=== PATIENT | male | born 1950 | race Two or more races ===

== ENCOUNTER 2018-03-03 11:14 | Inpatient (IN) | payer MEDICARE, OTHER ==
[~2018-03-03] VITALS: Ht 167.6 cm; Wt 74.2 kg
[~2018-03-03 11:14] MED LIST: Depakote 500mg tab ORAL SCH
[2018-03-03] MEDS ORDERED: DEPAKOTE ER500 MG ORAL (11:28)
[2018-03-03] MEDS ORDERED: LEVOCARNITINE330 MG ORAL (11:28)
[2018-03-03] MEDS ORDERED: KEPPRA500 M4 ORAL (11:28)
[2018-03-03] MEDS ORDERED: FLEET ENEMA133 ML RECTAL (11:28)
[2018-03-03] MEDS ORDERED: LACTULOSE20 GM/301 ORAL (11:28)
[2018-03-03] MEDS ORDERED: CALCITRIOL PO (11:28)
[2018-03-03] MEDS ORDERED: CAL-CITRATE W/200 MG ORAL (11:28)
[2018-03-03] MEDS ORDERED: VITAMIN D1000 UNI1 ORAL (11:28)
[2018-03-03] MEDS ORDERED: DULCOLAX10 MG RC (11:28)
[2018-03-03] MEDS ORDERED: FOLIC ACID1 MG ORAL (11:28)
[2018-03-03] MEDS ORDERED: PHENYTOIN SODI100 MG ORAL (11:29)
[2018-03-03] MEDS ORDERED: MILK OF MA2400 MG/10 ORAL (11:29)
[2018-03-03] MEDS ORDERED: SIMVASTATIN40 MG ORAL (11:29)
[2018-03-03] MEDS ORDERED: ZYPREXA5 MG ORAL (11:29)
[2018-03-03 11:34] VITALS: BP 134/69
[2018-03-03] MEDS ORDERED: Sodium Chloride 500ML 500 ML IV ONE (11:36)
[2018-03-03 12:45] LABS: EOSINOPHILS % (AUTO) 1.8 % (0.0-3.0); HEMATOCRIT 39.7 % (42.0-52.0); HEMOGLOBIN 14.2 G/DL (14.2-18.0); LYMPHOCYTES % (AUTO) 32.2 % (20.0-45.0); MEAN CORPUSCULAR VOLUME 95 FL (80-99); MONOCYTES % (AUTO) 9.2 % (1.0-10.0); NEUTROPHILS % (AUTO) 55.8 % (45.0-75.0); PLATELET COUNT 146 K/UL (150-450); RED BLOOD COUNT 4.17 M/UL (4.70-6.10); RED CELL DISTRIBUTION WIDTH 11.2 % (11.6-14.8); WHITE BLOOD COUNT 5.3 K/UL (4.8-10.8)
[2018-03-03 13:01] LABS: ANION GAP 8 mmol/L (5-15); BLOOD UREA NITROGEN 14 mg/dL (7-18); CALCIUM 8.9 MG/DL (8.5-10.1); CARBON DIOXIDE 27 MMOL/L (21-32); CHLORIDE 104 MMOL/L (98-107); CREATININE 0.6 MG/DL (0.55-1.30); POTASSIUM 4.6 MMOL/L (3.5-5.1); SODIUM 139 MMOL/L (136-145)
[2018-03-03 13:07] LABS: ALANINE AMINOTRANSFERASE 49 U/L (12-78); ALBUMIN 3.6 G/DL (3.4-5.0); ALKALINE PHOSPHATASE 122 U/L (46-116); ASPARTATE AMINO TRANSFERASE 24 U/L (15-37); BILIRUBIN,TOTAL 0.2 MG/DL (0.2-1.0)
[2018-03-03] MEDS ORDERED: Valproate Sodium INJ 500 MG in NS 55 ML IV ONE (13:30)
[2018-03-03 13:51] VITALS: BP 129/62
--- NOTE | 2018-03-03 13:51 | Emergency Room Report ---
History of Present Illness General Chief Complaint: Abnormal Labs Source: Patient, Medical Record Present Illness HPI 67-year-old male presents ED for evaluation of seizure. [facility]. Reportedly had a low Dilantin level. Patient has history of seizures. patient has schizophrenia. Upon arrival patient showing no signs of distress. States he feels okay. No other aggravating relieving factors. Denies any other associated symptoms Allergies: Coded Allergies: No Known Allergies (Unverified , 03/03/18) Patient History Past Medical History: seizures, psych hx, other - encephalopathy Past Surgical History: none Pertinent Family History: none Social History: Denies: smoking, alcohol use, drug use Immunizations: UTD Reviewed Nursing Documentation: PMH: Agreed; PSxH: Agreed Nursing Documentation-PMH Past Medical History: No History, Except For History Of Psychiatric Problem: Yes - Schizophrenia Hx Neurological Problems: Yes - difficulty in walking, muscle weakness, encephalopathy Hx Seizures: Yes Review of Systems All Other Systems: negative except mentioned in HPI Physical Exam Vital Signs Date Time Temp Pulse Resp B/P (MAP) Pulse Ox O2 Delivery O2 Flow Rate FiO2 03/03/18 11:14 98.1 64 16 132/68 98 Room Air 98.1 Sp02 EP Interpretation: reviewed, normal General Appearance: no apparent distress, alert, GCS 15, non-toxic Head: normocephalic, atraumatic Eyes: bilateral eye normal inspection, bilateral eye PERRL ENT: hearing grossly normal, normal pharynx, no angioedema, normal voice Neck: full range of motion, supple/symm/no masses Respiratory: chest non-tender, lungs clear, normal breath sounds, speaking full sentences Cardiovascular #1: regular rate, rhythm, no edema Cardiovascular #2: 2+ carotid (R), 2+ carotid (L), 2+ radial (R), 2+ radial (L) , 2+ dorsalis pedis (R), 2+ dorsalis pedis (L) Gastrointestinal: normal bowel sounds, non tender, soft, non-distended, no guarding, no rebound Rectal: deferred Genitourinary: normal inspection, no CVA tenderness Musculoskeletal: back normal, gait/station normal, normal range of motion, non- tender Neurologic: alert, oriented x3, responsive, motor strength/tone normal, sensory intact, speech normal Psychiatric: judgement/insight normal, memory normal, mood/affect normal, no suicidal/homicidal ideation Reflexes: 3+ bicep (R), 3+ bicep (L), 3+ tricep (R), 3+ tricep (L), 3+ knee (R) , 3+ knee (L) Skin: normal color, no rash, warm/dry, well hydrated Lymphatic: no adenopathy Medical Decision Making Diagnostic Impression: Primary Impression: Intractable seizures Additional Impression: Seizure secondary to subtherapeutic anticonvulsant medication ER Course Hospital Course 67-year-old M presents to ED with reportedly low dilantin level. h/o seizures Differential diagnosis includes- breakthrough seizure, alcohol abuse, noncompliance with medication Clinical course Patient placed on stretcher. Initial history and physical I ordered labs, IV fluids Labs-electrolytes okay, leukocytosis noted, hemoglobin/hematocrit stable. dilantin level normal, depkoate level subtherpaeutic Given loading dose of Depakote. I spoke to PMD; patient's seizures have been difficult to control despite overall compliance with his medication. I believe admission is required Case discussed with Dr. Ferrer and he agreed to accept the patient to his service for further care and support. i. I feel this is a highly complex case requiring extensive working including EKG/Rhythm strip, Xray/CT/US, Blood/urine lab work, repeat exams while in ED, and administration of strong opiates/narcotics for pain control, admission to hospital or close patient follow up. Diagnosis - intractable seizure, seizure secondary to subtherapeutic anticonvulsant medications admitted to floor in serious condition Labs Test 03/03/18 11:30 White Blood Count 5.3 K/UL (4.8-10.8) Red Blood Count 4.17 M/UL (4.70-6.10) Hemoglobin 14.2 G/DL (14.2-18.0) Hematocrit 39.7 % (42.0-52.0) Mean Corpuscular Volume 95 FL (80-99) Mean Corpuscular Hemoglobin 33.9 PG (27.0-31.0) Mean Corpuscular Hemoglobin Concent 35.6 G/DL (32.0-36.0) Red Cell Distribution Width 11.2 % (11.6-14.8) Platelet Count 146 K/UL (150-450) Mean Platelet Volume 8.0 FL (6.5-10.1) Neutrophils (%) (Auto) 55.8 % (45.0-75.0) Lymphocytes (%) (Auto) 32.2 % (20.0-45.0) Monocytes (%) (Auto) 9.2 % (1.0-10.0) Eosinophils (%) (Auto) 1.8 % (0.0-3.0) Basophils (%) (Auto) 1.0 % (0.0-2.0) Sodium Level 139 MMOL/L (136-145) Potassium Level 4.6 MMOL/L (3.5-5.1) Chloride Level 104 MMOL/L (98-107) Carbon Dioxide Level 27 MMOL/L (21-32) Anion Gap 8 mmol/L (5-15) Blood Urea Nitrogen 14 mg/dL (7-18) Creatinine 0.6 MG/DL (0.55-1.30) Estimat Glomerular Filtration Rate > 60 mL/min (>60) Glucose Level 105 MG/DL (74-106) Calcium Level 8.9 MG/DL (8.5-10.1) Total Bilirubin 0.2 MG/DL (0.2-1.0) Aspartate Amino Transf (AST/SGOT) 24 U/L (15-37) Alanine Aminotransferase (ALT/SGPT) 49 U/L (12-78) Alkaline Phosphatase 122 U/L (46-116) Total Protein 7.2 G/DL (6.4-8.2) Albumin 3.6 G/DL (3.4-5.0) Globulin 3.6 g/dL Albumin/Globulin Ratio 1.0 (1.0-2.7) Phenytoin (Dilantin) Level 18.3 ug/mL (10-20) Valproic Acid (Depakene) Level 20 MCG/ML (50-100) Last Vital Signs Date Time Temp Pulse Resp B/P (MAP) Pulse Ox O2 Delivery O2 Flow Rate FiO2 03/03/18 11:34 98.1 64 16 134/69 99 Room Air 98.1 Status: improved Disposition: ADMITTED INPATIENT Condition: Serious Referrals: Cody Ferrer MD (PCP) Tong Hansen MD Mar 03, 2018 13:51
[2018-03-03 14:45] VITALS: BP 135/73
[2018-03-03] MEDS ORDERED: Fleet's Enema 133ml RECTAL PRN (18:30)
[2018-03-03] MEDS ORDERED: Milk of Magnesia 30ml Ud ORAL PRN (18:30)
--- NOTE | 2018-03-03 20:15 | History and Physical Report ---
DATE OF ADMISSION: 03/03/2018 REASON FOR ADMISSION: Recurrent seizure. HISTORY OF PRESENT ILLNESS: The patient came to the emergency room with generalized weakness and possible seizure at [facility]. He is currently alert, awake, doing fine. His Dilantin level was low. The patient denies any chest pain or palpitation. He is alert and awake. MEDICATIONS: See the list. PHYSICAL EXAMINATION: GENERAL: This is an elderly male, who is currently awake, in the bed. VITAL SIGNS: Blood pressure is 140/90, pulse 60, respirations 18 and no fever. HEENT: NAD. CHEST: Bilateral clear. CARDIOVASCULAR: Regular rhythm. ABDOMEN: Positive bowel sounds. EXTREMITIES: CCE. NEUROLOGIC: Generalized weakness. ASSESSMENT AND PLAN: 1. Recurrent seizure. 2. Hypertension. 3. Generalized weakness. 4. We will replace the Dilantin. 5. Monitor . 6. Continue Ativan. 7. Continue IV fluid. 8. Continue rest of the treatment. Cody Ferrer M.D. DR: ALEX JOB#: [id number] CC:
[2018-03-03 21:00] VITALS: BP 135/73
[2018-03-03] MEDS ORDERED: Vitamin D 1000 IU Tab ORAL SCH (21:00)
[2018-03-03] MEDS ORDERED: Lactulose 20gm/30ml UDC ORAL SCH (21:00)
[2018-03-03] MEDS ORDERED: Depakote 500mg tab ORAL SCH (21:00)
[2018-03-03] MEDS ORDERED: levOCARNitine 330mg tab ORAL SCH (21:00)
[2018-03-03] MEDS: Phenytoin 100mg cap ORAL SCH (21:53)
[2018-03-04] VITALS: BP 128/75
[2018-03-04 04:00] VITALS: BP 120/77
[2018-03-04] MEDS: Phenytoin 100mg cap ORAL SCH ×4 (08:43→20:45)
[2018-03-04] MEDS: Vitamin D 1000 IU Tab ORAL SCH ×2 (08:43→16:57)
[2018-03-04] MEDS: levOCARNitine 330mg tab ORAL SCH ×2 (08:44→16:57)
[2018-03-04] MEDS: Depakote 500mg tab ORAL SCH ×3 (08:44→16:57)
[2018-03-04] MEDS: Lactulose 20gm/30ml UDC ORAL SCH (08:44)
[2018-03-04 09:08] VITALS: BP 134/72
[2018-03-04 12:02] VITALS: BP 124/71
[2018-03-04 16:10] VITALS: BP 123/72
[2018-03-04 20:11] VITALS: BP 120/64
--- NOTE | 2018-03-05 00:30 | Progress Note ---
DATE: 03/04/2018 SUBJECTIVE: This is an elderly male, currently doing better, no distress, came to the emergency room for uncontrolled seizure and low Dilantin level and generalized weakness and dehydration. The patient is currently feeling better. OBJECTIVE: VITAL SIGNS: Blood pressure is 130/70, pulse 60s, respirations 18, and no fever. HEENT: AT/NC. EOMI. PERRLA. NECK: Supple. No JVD. CHEST: Bilateral crackles. CARDIOVASCULAR: Regular rhythm. No gallop. No murmur. ABDOMEN: Soft. EXTREMITIES: CCE. NEUROLOGIC: Generalized weakness. ASSESSMENT: 1. Uncontrolled seizure. 2. Dehydration. 3. Generalized weakness. PLAN: We will add vitamin and continue Dilantin. Continue current treatment. Consider Neurology consult. Cody Ferrer M.D. DR: FARRUKH JOB#: [id number] CC:
[2018-03-05] MEDS: Phenytoin 100mg cap ORAL SCH ×4 (08:05→20:28)
[2018-03-05] MEDS: levOCARNitine 330mg tab ORAL SCH ×2 (08:06→17:31)
[2018-03-05] MEDS: Depakote 500mg tab ORAL SCH ×3 (08:06→17:31)
[2018-03-05] MEDS: Lactulose 20gm/30ml UDC ORAL SCH (08:07)
[2018-03-05] MEDS: Vitamin D 1000 IU Tab ORAL SCH ×2 (08:07→17:30)
[2018-03-05 08:10] VITALS: BP 125/70
[2018-03-05 11:48] VITALS: BP 124/77
--- NOTE | 2018-03-05 12:27 | Consultation ---
History of Present Illness General Date patient seen: Mar 04, 2018 Chief Complaint: Abnormal Labs Present Illness HPI the pt is a 67 yo greek speaking male with hx of psychosis and generalized weakness and possible seizure at intermediate. the pt is currently on zyprexa the pt denied psychotic manic sxs no si/hi Allergies: Coded Allergies: No Known Allergies (Unverified , 03/03/18) Medication History Scheduled Calcitriol (Calcitriol), 0.5 MCG PO DAILY, (Reported) Calcium Carbonate (Calcium Carbonate), 600 MG ORAL DAILY, (Reported) Cholecalciferol (Vitamin D3)* (Vitamin D*), 1,000 UNITS ORAL TWICE A DAY, ( Reported) Divalproex Sodium* (Depakote Er*), 500 MG ORAL TID, (Reported) Folic Acid* (Folic Acid*), 1 MG ORAL DAILY, (Reported) Lactulose (Lactulose*), 30 ML ORAL DAILY, (Reported) Levetiracetam (Keppra), 500 MG ORAL EVERY 12 HOURS, (Reported) Levocarnitine (Levocarnitine), 330 MG ORAL TWICE A DAY, (Reported) Olanzapine* (Zyprexa*), 5 MG ORAL EVERY 12 HOURS, (Reported) Phenytoin Sodium Extended* (Phenytoin Sodium Extended*), 100 MG ORAL FOUR TIMES A DAY, (Reported) Simvastatin (Zocor), 40 MG ORAL BEDTIME, (Reported) Scheduled PRN Bisacodyl (Dulcolax), 10 MG RC NEEDED PRN for Constipation, (Reported) Magnesium Hydroxide* (Milk Of Magnesia*), 10 ML ORAL NEEDED PRN for Constipation, (Reported) Na Phos,M-B/Na Phos,Di-Ba* (Fleet Enema*), 133 ML RECTAL NEEDED PRN for Constipation, (Reported) Patient History Limited by: medical condition History Provided By: Patient, Medical Record, PMD Healthcare decision maker NESHA CISNEROS Resuscitation status Full Code Advanced Directive on File Past Medical/Surgical History Past Medical/Surgical History: (1) Seizure secondary to subtherapeutic anticonvulsant medication (2) Intractable seizures Review of Systems Psychiatric: Reports: prior hx, anxiety, depressed feelings, emotional problems Physical Exam General Appearance: no apparent distress, alert Neurologic: oriented x 3, depressed affect Last 24 Hour Vital Signs Date Time Temp Pulse Resp B/P (MAP) Pulse Ox O2 Delivery O2 Flow Rate FiO2 03/05/18 11:48 97.3 56 18 124/77 (93) 99 97.3 03/05/18 10:00 Room Air 03/05/18 09:00 Room Air 03/05/18 08:10 97.5 60 20 125/70 (88) 99 97.5 03/04/18 21:00 Room Air 03/04/18 20:11 97.5 54 20 120/64 (82) 98 97.5 03/04/18 16:10 97.7 59 20 123/72 (89) 97 97.7 Intake and Output 03/04/18 03/05/18 19:00 07:00 Intake Total 480 ml 360 ml Output Total 500 ml 400 ml Balance -20 ml -40 ml Intake Oral 480 ml 360 ml Output Urine Total 500 ml 400 ml # Voids 3 Height (Feet): 5 Height (Inches): 6.00 Weight (Pounds): 180 Medications Current Medications Medications (Trade) Dose Ordered Sig/Reagan Route PRN Reason Start Time Stop Time Status Last Admin Dose Admin Bisacodyl (Dulcolax) 10 mg DAILYPRN PRN RECTAL Constipation 03/03/18 18:30 04/02/18 18:29 Calcium Carbonate (Os-Anthony) 1,250 mg DAILY ORAL 03/04/18 09:00 04/03/18 08:59 03/05/18 08:06 Divalproex Sodium (Depakote) 500 mg TID ORAL 03/04/18 09:00 04/03/18 08:59 03/05/18 08:06 Folic Acid (Folate) 1 mg DAILY ORAL 03/04/18 09:00 04/03/18 08:59 03/05/18 08:06 Lactulose (Cephulac) 20 gm DAILY ORAL 03/04/18 09:00 04/03/18 08:59 Levetiracetam (Keppra) 500 mg EVERY 12 HOURS ORAL 03/03/18 21:00 04/02/18 20:59 03/05/18 08:05 Levocarnitine (L-Carnitine) 330 mg TWICE A DAY ORAL 03/04/18 09:00 04/03/18 08:59 03/05/18 08:06 Magnesium Hydroxide (Mom) 10 ml DAILYPRN PRN ORAL Constipation 7/28/18 18:30 04/02/18 18:29 Olanzapine (ZyPREXA) 5 mg EVERY 12 HOURS ORAL 03/03/18 21:00 04/02/18 20:59 03/05/18 08:05 Phenytoin (Dilantin) 100 mg FOUR TIMES A DAY ORAL 03/03/18 21:00 04/02/18 20:59 03/05/18 08:05 Sodium Phosphate (Fleet's Sodium Phosl Enema) 133 ml DAILYPRN PRN RECTAL Constipation 03/03/18 18:30 04/02/18 18:29 Vitamin D (Vitamin D) 1,000 intlu TWICE A DAY ORAL 03/04/18 09:00 04/03/18 08:59 03/05/18 08:07 Assessment/Plan Status: stable Assessment/Plan schizophrenia cont zyprexa provided ro/Teri Zapien MD Mar 05, 2018 12:26
[2018-03-05 16:06] VITALS: BP 124/76
--- NOTE | 2018-03-05 19:35 | Cardiology Report ---
APPROVED REPORT EKG Measurement Heart [id number] [id number] Normal sinus rhythm Normal ECG
[2018-03-05 20:08] VITALS: BP 124/58
--- NOTE | 2018-03-05 23:18 | General Progress Note ---
Assessment/Plan Status: stable Assessment/Plan schizophrenia cont zyprexa provided ro/st Subjective Date patient seen: Mar 05, 2018 Neurologic/Psychiatric: Reports: anxiety, depressed, emotional problems Allergies: Coded Allergies: No Known Allergies (Unverified , 03/03/18) Objective Last 24 Hour Vital Signs Date Time Temp Pulse Resp B/P (MAP) Pulse Ox O2 Delivery O2 Flow Rate FiO2 03/05/18 21:00 Room Air 03/05/18 20:08 96.2 58 20 124/58 (80) 97 96.2 03/05/18 16:06 97.5 58 18 124/76 (92) 99 97.5 03/05/18 11:48 97.3 56 18 124/77 (93) 99 97.3 03/05/18 10:00 Room Air 03/05/18 09:00 Room Air 03/05/18 08:10 97.5 60 20 125/70 (88) 99 97.5 Intake and Output 03/04/18 03/05/18 19:00 07:00 Intake Total 480 ml 360 ml Output Total 500 ml 400 ml Balance -20 ml -40 ml Intake Oral 480 ml 360 ml Output Urine Total 500 ml 400 ml # Voids 3 Height (Feet): 5 Height (Inches): 6.00 Weight (Pounds): 180 General Appearance: no apparent distress, alert Teri Torres MD Mar 05, 2018 23:18
[2018-03-06 00:15] VITALS: BP 95/54
[2018-03-06 04:55] VITALS: BP 111/62
[2018-03-06 08:00] VITALS: BP 140/72
[2018-03-06] MEDS: Vitamin D 1000 IU Tab ORAL SCH ×2 (08:45→17:04)
[2018-03-06] MEDS: Lactulose 20gm/30ml UDC ORAL SCH (08:45)
[2018-03-06] MEDS: Phenytoin 100mg cap ORAL SCH ×4 (08:45→20:23)
[2018-03-06] MEDS: Depakote 500mg tab ORAL SCH ×3 (08:46→17:04)
[2018-03-06] MEDS: levOCARNitine 330mg tab ORAL SCH ×2 (08:46→17:04)
[2018-03-06 12:00] VITALS: BP 149/75
--- NOTE | 2018-03-06 14:58 | General Progress Note ---
Assessment/Plan Status: stable Assessment/Plan schizophrenia cont zyprexa provided ro/st Subjective Date patient seen: Mar 06, 2018 Neurologic/Psychiatric: Reports: anxiety, depressed, emotional problems Allergies: Coded Allergies: No Known Allergies (Unverified , 03/03/18) Objective Last 24 Hour Vital Signs Date Time Temp Pulse Resp B/P (MAP) Pulse Ox O2 Delivery O2 Flow Rate FiO2 03/06/18 12:00 97.7 60 20 149/75 (99) 95 97.7 03/06/18 08:15 Room Air 03/06/18 08:00 97.9 71 18 140/72 (94) 99 97.9 03/06/18 04:55 96.3 65 20 111/62 (78) 99 96.3 03/06/18 00:15 95.5 56 20 95/54 (68) 98 95.5 03/05/18 21:00 Room Air 03/05/18 20:08 96.2 58 20 124/58 (80) 97 96.2 03/05/18 16:06 97.5 58 18 124/76 (92) 99 97.5 Intake and Output 03/05/18 03/06/18 19:00 07:00 Intake Total 720 ml Output Total 400 ml Balance 320 ml Intake Oral 720 ml Output Urine Total 400 ml # Voids 4 Height (Feet): 5 Height (Inches): 6.00 Weight (Pounds): 180 General Appearance: no apparent distress, alert Neurologic: oriented x 3, responsive Teri Torres MD Mar 06, 2018 14:58
[2018-03-06 16:00] VITALS: BP 127/60
[2018-03-06 20:05] VITALS: BP 119/68
[2018-03-07 00:37] VITALS: BP 134/70
[2018-03-07 04:33] VITALS: BP 124/68
[2018-03-07 08:00] VITALS: BP 133/75
[2018-03-07] MEDS: Phenytoin 100mg cap ORAL SCH ×4 (08:12→21:20)
[2018-03-07] MEDS: Vitamin D 1000 IU Tab ORAL SCH ×2 (08:12→17:04)
[2018-03-07] MEDS: Lactulose 20gm/30ml UDC ORAL SCH (08:12)
[2018-03-07] MEDS: levOCARNitine 330mg tab ORAL SCH ×2 (08:12→17:04)
[2018-03-07] MEDS: Depakote 500mg tab ORAL SCH ×3 (08:13→17:04)
[2018-03-07 11:31] VITALS: BP 135/68
--- NOTE | 2018-03-07 14:21 | General Progress Note ---
Assessment/Plan Status: stable Assessment/Plan schizophrenia cont zyprexa provided ro/st Subjective Neurologic/Psychiatric: Reports: anxiety Allergies: Coded Allergies: No Known Allergies (Unverified , 03/03/18) Subjective the pt was calm nad Objective Last 24 Hour Vital Signs Date Time Temp Pulse Resp B/P (MAP) Pulse Ox O2 Delivery O2 Flow Rate FiO2 03/07/18 11:31 97.6 74 20 135/68 (90) 98 97.6 03/07/18 08:15 Room Air 03/07/18 08:00 97.7 82 19 133/75 (94) 98 97.7 03/07/18 08:00 97.7 82 19 133/75 (94) 98 97.7 03/07/18 04:33 96.1 58 20 124/68 (86) 99 96.1 03/07/18 00:37 97.2 57 17 134/70 (91) 97 97.2 03/06/18 21:04 Room Air 03/06/18 20:05 96.3 56 19 119/68 (85) 97 96.3 03/06/18 16:00 97.7 63 19 127/60 (82) 99 97.7 Intake and Output 03/06/18 03/07/18 19:00 07:00 Intake Total 960 ml 120 ml Output Total 1400 ml Balance -440 ml 120 ml Intake Oral 960 ml 120 ml Output Urine Total 1400 ml # Voids 3 Height (Feet): 5 Height (Inches): 6.00 Weight (Pounds): 163 General Appearance: no apparent distress, alert Neurologic: oriented x 3, responsive, depressed affect Teri Torres MD Mar 07, 2018 14:21
[2018-03-07 15:43] VITALS: BP 135/69
[2018-03-07 20:00] VITALS: BP 133/89
--- NOTE | 2018-03-07 22:45 | Progress Note ---
DATE: 03/07/2018 SUBJECTIVE: The patient is a 67-year-old male currently sleeping comfortably. No seizure. PHYSICAL EXAMINATION: VITAL SIGNS: Stable. Blood pressure 130/76, pulse 64, respirations . No fever. CHEST: Bilaterally clear. CARDIOVASCULAR: Regular rhythm. ABDOMEN: Soft. EXTREMITIES: CCE ASSESSMENT: 1. Recurrent seizure. 2. Hypertension. 3. Mild weakness. PLAN: 1. Continue current treatment. 2. Monitor seizure. 3. We will check Dilantin level. 4. Discharge plan. Cody Ferrer M.D. DR: Lisa JOB#: [id number] CC:
[2018-03-08] VITALS: BP 123/71
[2018-03-08 04:00] VITALS: BP 137/75
[2018-03-08 08:00] VITALS: BP 139/84
[2018-03-08] MEDS: levOCARNitine 330mg tab ORAL SCH (09:25)
[2018-03-08] MEDS: Lactulose 20gm/30ml UDC ORAL SCH (09:25)
[2018-03-08] MEDS: Vitamin D 1000 IU Tab ORAL SCH (09:25)
[2018-03-08] MEDS: Phenytoin 100mg cap ORAL SCH ×2 (09:26→13:27)
[2018-03-08] MEDS: Depakote 500mg tab ORAL SCH ×2 (09:26→13:27)
[2018-03-08 12:00] VITALS: BP 126/71
--- NOTE | 2018-03-08 20:45 | Progress Note ---
DATE: 03/08/2018 SUBJECTIVE: This is a 67-year-old male who came to the emergency room for having uncontrolled seizure and low Dilantin level. The patient is currently alert, awake, and feeling better. HOSPITAL COURSE: The patient had no seizure and Dilantin level was . The patient did very well. [facility] Follow up as outpatient. MEDICATIONS: See the discharge medication list. Cody Ferrer M.D. DR: Coco JOB#: [id number] CC:
--- NOTE | 2018-03-08 22:09 | General Progress Note ---
Assessment/Plan Assessment/Plan schizophrenia cont zyprexa provided ro/st Subjective Date patient seen: Mar 08, 2018 Neurologic/Psychiatric: Reports: anxiety, depressed, emotional problems Allergies: Coded Allergies: No Known Allergies (Unverified , 03/03/18) Subjective the pt was calm nad Objective Last 24 Hour Vital Signs Date Time Temp Pulse Resp B/P (MAP) Pulse Ox O2 Delivery O2 Flow Rate FiO2 03/08/18 12:00 97.5 59 19 126/71 (89) 97 97.5 03/08/18 08:30 Room Air 03/08/18 08:00 97.8 74 21 139/84 (102) 100 97.8 03/08/18 04:00 97.5 63 20 137/75 (95) 97 97.5 03/08/18 00:00 97.0 59 20 123/71 (88) 100 97.0 Intake and Output 03/07/18 03/08/18 19:00 07:00 Intake Total 300 ml 480 ml Output Total 3 ml Balance 300 ml 477 ml Intake Oral 300 ml 480 ml Output Urine Total 3 ml # Voids 2 # Bowel Movements 1 Height (Feet): 5 Height (Inches): 6.00 Weight (Pounds): 163 Teri Torres MD Mar 08, 2018 22:09
--- NOTE | 2018-03-09 06:43 | Discharge Summary ---
Discharge Summary Discharge Summary _ DATE OF ADMISSION: 03/03/2018 DATE OF DISCHARGE: 03/08/2018 CONSULTANTS: Dr. Teri Torres BRIEF HOSPITAL COURSE: Patient is a 67-year-old male, who is a [facility], was taken to [facility] for evaluation of abnormal labs. Patient reportedly had low Dilantin level. Patient has a history of seizure and schizophrenia. Upon arrival to ED, vital signs were stable. Blood work was without leukocytosis, hemoglobin and hematocrit was stable. Dilantin level was 18 and valproic acid was 20. He was given loading dose of valproic acid 500 mg IV. Patient has difficult to control seizures despite compliance with his medications. He was then admitted for further evaluation. He was admitted to telemetry unit. He was placed on seizure precautions with frequent neuro checks. He was seen by Dr. Torres for evaluation of schizophrenia. He was continued on Zyprexa. He was given Dilantin 100 mg 4 times a day, Keppra 500 mg every 12 hours and Depakote 500 mg 3 times a day. There was no noted episodes of seizure breakthrough. He was eventually discharged back to long term. FINAL DIAGNOSES: Seizure disorder with acute exacerbation secondary to subtherapeutic anticonvulsants Hypertension Generalized weakness DISPOSITION: Patient was discharged to [facility]. DISCHARGE MEDICATIONS: Refer to Discharge Medication List. I have been assigned to dictate discharge summary on this account, and I was not involved in the patient's management. Natasha Enriquez NP Mar 09, 2018 06:43
== END 2018-03-08 13:40 | DRG 101 ==
LOC: EDBD 11:14 → EMR 11:50 → 2E 12:33 → UNDOADMOB 12:33 → 4W 12:33 → EDBEDREQ 12:39 → OBSVTOIN 12:42 → EDBEDREQ 14:06
DX: G40.909 Epilepsy, unspecified, not intractable, without status epilepticus (principal); E86.0 Dehydration; I10 Essential (primary) hypertension; F20.9 Schizophrenia, unspecified
CPT/HCPCS: 36415; 80053; 80164; 80185; 80299; 85025; 87081; 93005